=== PATIENT | male | born 1955 | race Caucasian/White ===

== ENCOUNTER 2018-04-07 05:30 | Inpatient (IN) | payer BC ==
[~2018-04-07 05:30] MED LIST: Buffered Lidocaine 1% SYRIN* 1 ML/SYRINGE INTRADERM ONE
--- OUTSIDE RECORDS SUMMARY | 2018-04-07 05:33 | XMS REPORT | Continuity of Care Document ---
:1955 External Reference #:[id number] Author Name Ilana Turcios Care Team Providers Name Role Phone Chris Adkins MD Primary Care Physician Unavailable Payers Type Date Identification Numbers Payment Provider Subscriber Policy Number: [id number] [facility] Maynor Coronel JR PayID: [id number] [address] [place] [address] Effective: 2014 Policy Number: [id number] BS Tommie Leavitts Expires: 2018 PayID: [id number] [address] [address] [place] [address] Effective: 2009 Policy Number: [id number] BS Of Y Tangela Coronel Expires: 2014 PayID: [id number] [address] [address] [place] [address] Advance Directives Description No Information Available Problems Date Description Provider Status Onset: 06/26/2017 Localized, primary osteoarthritis Jose Roberto Hutchison M.D. 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 [employer] Tobacco Use Start: Unknown End: Former Cigarette Smoker Unknown Smoking Status Reviewed: 04/02/18 Former Cigarette Smoker ETOH Use Occasionally consumes alcohol Tobacco Use Start: Unknown End: Patient is a former quit 1972, then Unknown smoker chewed tobacco quit last month Recreational Drug Use Denies Drug Use Exercise Type/Frequency Exercises regularly Allergies, Adverse Reactions, Alerts Description No Known Drug Allergies Medications Medication Date Status Form Strength Qnty SIG Indications Ordering Provider No Active Active Unknown Medications 019 Voltaren Hx Gel 1% 500unit apply 4 M17.0 Jose Roberto 018 - s grams to Foster, knee area M.D. 019 twice a day as needed Protonix Hx Tablets DR 40mg 30tabs 1 by Luis 015 - mouth F. Mauser, every day M.D. 018 Zantac 00/0 Hx Tablets 300mg 1 by Unknown 000 - mouth every day 015 Ibuprofen 200 00/0 Hx Tablets 200mg 400-600mg Unknown 000 - every 6 hours as 019 needed for pain. Immunizations Description No Information Available Vital Signs Date Vital Result Comment 04/02/2018 9:33am Height 67 inches 5'7" Weight 230.00 lb BP Systolic 138 mmHg BP Diastolic 82 mmHg Respiratory Rate 20 /min Pain Level 3 BMI (Body Mass Index) 36.0 kg/m2 01/15/2018 9:24am Height 67 inches 5'7" Weight 228.00 lb BP Systolic 132 mmHg BP Diastolic 76 mmHg Respiratory Rate 20 /min Pain Level 3 BMI (Body Mass Index) 35.7 kg/m2 08/14/2017 2:01pm Height 67 inches 5'7" Weight 228.00 lb BP Systolic 138 mmHg BP Diastolic 82 mmHg Respiratory Rate 20 /min Pain Level 3 BMI (Body Mass Index) 35.7 kg/m2 06/26/2017 1:52pm Height 67 inches 5'7" Weight 228.00 lb BP Systolic 142 mmHg BP Diastolic 86 mmHg Respiratory Rate 18 /min Body Temperature 97.4 F Pain Level 5 BMI (Body Mass Index) 35.7 kg/m2 10/05/2014 2:01pm Height 67 inches 5'7" Weight 221.00 lb Heart Rate 64 /min BP Systolic 120 mmHg LA reg BP Diastolic 70 mmHg LA reg BMI (Body Mass Index) 34.6 kg/m2 Results Test Date Facility Test Result H/L Range Note Inr/Protime 03/26/2018 [facility] Inr 0.84 N 0.77-1.[address] [place] [address] [phone] Laboratory test 03/26/2018 [facility] Partial 29.1 seconds N 26.0-36.[address] [place] [address] PTT [phone] CBC Auto Diff 03/26/2018 [facility] White Blood 5.0 10^3/uL N 3.5-10.[address] [place] [address] [phone] Red Blood Count 5.11 10^6/uL N 4.00-5.40 Hemoglobin 16.1 g/dL N 14.0-18.0 Hematocrit 46 % N 42-52 Mean Corpuscular Volume 90 fL N 80-94 Mean Corpuscular Hemoglobin 32 pg High 27-31 Mean Corpuscular HGB Conc 35 g/dL N 31-36 Red Cell Distribution Width 13 % N 10.5-15 Platelet Count 217 10^3/uL N 150-450 Mean Platelet Volume 9.4 fL N 7.4-10.4 Abs Neutrophils 3.2 10^3/uL N 1.5-7.7 Abs Lymphocytes 1.2 10^3/uL N 1.0-4.8 Abs Monocytes 0.4 10^3/uL N 0-0.8 Abs Eosinophils 0.1 10^3/uL N 0-0.6 Abs Basophils 0 10^3/uL N 0-0.2 Abs Nucleated RBC 0 10^3/uL Granulocyte % 64.1 % Lymphocyte % 24.8 % Monocyte % 8.8 % Eosinophil % 1.9 % Basophil % 0.4 % Nucleated Red Blood Cells % 0.1 Urinalysis Profile 03/26/2018 [facility] Urine Color Yellow [address] [place] [address] [phone] Urine Appearance Clear Urine Specific [place] 1.019 N 1.010-1.030 Urine pH 5.0 N 5-9 Urine Urobilinogen Negative Negative Urine Ketones Negative Negative Urine Protein Negative Negative Urine Leukocytes Negative Negative Urine Blood Negative Negative Urine Nitrite Negative Negative Urine Bilirubin Negative Negative Urine Glucose Negative Negative Comp Metabolic Panel 03/26/2018 [facility] Sodium 142 mmol/L N 135-145 [address] [place] [address] [phone] Potassium 4.6 mmol/L N 3.5-5.0 Chloride 108 mmol/L N 101-111 Co2 Carbon Dioxide 27 mmol/L N 22-32 Anion Gap 7 mmol/L N 2-11 Glucose 85 mg/dL N 70-100 Blood Urea Nitrogen 12 mg/dL N 6-24 Creatinine 0.80 mg/dL N 0.67-1.17 BUN/Creatinine Ratio 15.0 N 8-20 Calcium 9.8 mg/dL N 8.6-10.3 Total Protein 6.7 g/dL N 6.4-8.9 Albumin 4.6 g/dL N 3.2-5.2 Globulin 2.1 g/dL N 2-4 Albumin/Globulin Ratio 2.2 N 1-3 Total Bilirubin 0.40 mg/dL N 0.2-1.0 Alkaline Phosphatase 77 U/L N 34-104 Alt 22 U/L N 7-52 Ast 15 U/L N 13-39 Egfr Non- 97.6 >60 Egfr 118.1 >60 1 Type & Screen 03/26/2018 [facility] Patient Blood Type O Negative [address] [place] [address] [phone] Antibody Screen NEGATIVE Urine Culture And 03/26/2018 [facility] Urine Culture SEE RESULT [address] [place] [address] [phone] 1 Because ethnic data is not always readily available, this report includes an eGFR for both -Americans and non- Americans. The National Kidney Disease Education Program (NKDEP) does not endorse the use of the MDRD equation for patients that are not between the ages of 18 and 70, are , have extremes of body size, muscle mass, or nutritional status, or are non- or non-. According to the National Kidney Foundation, irrespective of diagnosis, the stage of the disease is based on the level of kidney function: Stage Description GFR(mL/min/1.73 m(2)) 1 Kidney damage with normal or decreased GFR 90 2 Kidney damage with mild decrease in GFR 60-89 3 Moderate decrease in GFR 30-59 4 Severe decrease in GFR 15-29 5 Kidney failure <15 (or dialysis) 2 SEE RESULT BELOW Name: MAYNOR CORONEL JR : [address]: Jose Roberto Hutchison MD Acct: [id number] Unit: [id number] AGE: 62 Location: [facility] Re03/26/18 SEX: M Status: REG REF SPEC: [id number] JESSI: 03/26/18-[address]: Jose Roberto Hutchison MD REQ: [id number] RECD: 03/26/18 STATUS: COMP _ SOURCE: URINE SPDESC: ORDERED: Urine Culture QUERIES: Urine Source: Clean Catch Procedure Result Reported Site Urine Culture Final 03/27/18- 1221 ML No Growth (<1,000 CFU/mL) * ML - Main Lab . END OF REPORT DEPARTMENT OF PATHOLOGY, [address] [place] [address] Sohail Gilmore M.D. Director [facility] # [id number] Procedures Date Code Description Status 10/06/2014 76342 ECHO Transthoracic, Real-Time 2D With Doppler And Color Completed Flow 10/05/2014 63576 EKG Tracing & Interpretation Completed 04/05/2011 27696 Xray Knee 3 Views Completed 04/05/2011 07231 Xray Knee 3 Views Completed 04/05/2011 89055 Rad Exam; Knee, Ap&L Completed 04/05/2011 99817 Rad Exam; Knee, Ap&L Completed Encounters Type Date Location Provider Dx Diagnosis Office Visit 01/15/2018 Anastasiya Dale7.11 Unilateral primary 9:30a [facility] osteoarthritis, right [facility] knee Office Visit 08/14/2017 Anastasiya Dale7.0 Bilateral primary 2:00p [facility] osteoarthritis of knee [facility] Office Visit 06/26/2017 Anastasiya Dale7.0 Bilateral primary 1:30p [facility] osteoarthritis of knee [facility] Office Visit 10/05/2014 [facility] Luis Hatch 794.31 Electrocardiogram (ECG) 2:00p Arben Su (EKG) Abnormal 786.50 Pain Chest Unspec 426.4 Right Bundle Branch Block Office Visit 04/05/2011 Anastasiya Cid 715.96 Osteoarthrosis 11:00a [facility] Unspec Genlzd Or [facility] Localized Lower Leg Plan of Treatment Future Appointment(s):04/30/2018 11:15 am - Jose Roberto Hutchison M.D. at [facility]04/07/2018 7:30 am - MADDIE Hernandez at [facility]04/07/2018 7:30 am - Jose Roberto Hutchison M.D. at [facility]José Luis04/02/2018 - Jose Roberto Hutchison M.D.M17.11 Unilateral primary osteoarthritis, right kneeFollow up:Follow up: 1 month post-op
[2018-04-07] MEDS ORDERED: Famotidine IV* 10 MG/ML 2 ML (20 mg) IV ONE (06:00)
[2018-04-07] MEDS ORDERED: Dexamethasone IV* 4 MG/ML 1 ML (4 MG) IV SLOW PU ONE (06:00)
[2018-04-07] MEDS ORDERED: Lactated Ringers 1000 ML Bag* 1,000 ML IV SCH (06:00)
[2018-04-07] MEDS ORDERED: Famotidine IV* 10 MG/ML 2 ML (20 mg) ONE (06:14)
[2018-04-07] MEDS ORDERED: ceFAZolin 2 GM PREMIX in ORs 2 GM/50 ML BAG IVPB ONE (06:14)
[2018-04-07] MEDS ORDERED: Dexamethasone IV* 4 MG/ML 1 ML (4 MG) ONE (06:14)
[2018-04-07] MEDS ORDERED: Lidocaine 1% MPF wEPI 200,000* 30 ML SDV ONE (06:49)
[2018-04-07] MEDS ORDERED: Bupivacaine 0.5%* 50 ML VIAL ONE (06:50)
[2018-04-07] MEDS ORDERED: Midazolam* 1 MG/ML 2 ML VIAL (2 MG) ONE (07:06)
[2018-04-07] MEDS ORDERED: fentaNYL* 50 MCG/ML 2 ML VIAL (100 MCG VIAL) ONE ×2 (07:06→08:45)
[2018-04-07] MEDS ORDERED: Bupivacaine 0.5% W/EPI SDV* 30 ML VIAL ONE ×2 (07:24→08:18)
[2018-04-07] MEDS ORDERED: ROPIVACAINE 5 MG/ML 30 ML BTL (0.5%) ONE (07:28)
[2018-04-07] MEDS ORDERED: Lidocaine 1%* 5 ML VIAL ONE (07:28)
[2018-04-07] MEDS ORDERED: Tranexamic Acid 1,000 MG in NS 0.9% 50 ML IV ONE (08:00)
[2018-04-07] MEDS ORDERED: Lidocaine 2% PF * 5 ML VIAL ONE (08:48)
[2018-04-07] MEDS ORDERED: Propofol* 10 MG/ML 20 ML BTL ONE ×3 (08:48→10:12)
[2018-04-07] MEDS ORDERED: Bupivacaine-MPF SPINAL* 7.5 MG/ML - 2ML AMP ONE (08:48)
[2018-04-07] MEDS ORDERED: Acetaminophen IV 1GM/100ML * 1,000 MG/100 ML VIAL IVPB ONE (09:00)
[2018-04-07] MEDS ORDERED: Morphine VIAL* 4 MG/ML VIAL (1 ml vial) IV PRN ×2 (09:00→10:44)
[2018-04-07] MEDS ORDERED: Ondansetron INJ* 2 MG/ML VIAL IV PRN ×2 (09:00→10:44)
[2018-04-07] MEDS ORDERED: oxyCODONE TAB* 5 MG TAB PO PRN (09:00)
[2018-04-07] MEDS ORDERED: fentaNYL* 50 MCG/ML 2 ML VIAL (100 MCG VIAL) IV PRN (09:00)
[2018-04-07] MEDS ORDERED: Naloxone* 0.4 MG/ML 1 ML VIAL IV PRN (09:00)
[2018-04-07] MEDS ORDERED: Ketorolac INJ* 30 MG/ML 1 ML VIAL IV PRN (09:00)
[2018-04-07] MEDS ORDERED: Propofol* 0 MG/0 ML BTL ONE (10:00)
[2018-04-07] MEDS ORDERED: Magnesium Hydroxide LIQ* 30 ML UDC PO PRN (10:38)
[2018-04-07] MEDS ORDERED: diPHENhydraMINE PO* 25 MG PO PRN (10:44)
[2018-04-07] MEDS ORDERED: Ondansetron ODT TAB* 4 MG PO PRN (10:44)
[2018-04-07] MEDS ORDERED: diPHENhydraMINE IV* 50 MG/ML 1 ml VIAL (BENADRYL) IV PRN (10:44)
[2018-04-07] MEDS ORDERED: Acetaminophen IV 1GM/100ML * 100 ML ONE (10:52)
[2018-04-07] MEDS ORDERED: Acetaminophen TAB* 325 MG PO SCH (11:00)
[2018-04-07] MEDS: D5W 1/2 NS 1000 ML BAG* 1,000 ML IV SCH ×3 (12:23→23:22)
[2018-04-07] MEDS: traMADol TAB* 50 MG PO SCH ×3 (13:32→23:27)
[2018-04-07] MEDS: oxyCODONE TAB* 5 MG TAB PO PRN ×2 (14:36→18:18)
[2018-04-07] MEDS ORDERED: Warfarin TAB(*) 10 MG PO ONE (17:00)
[2018-04-07] MEDS: Acetaminophen TAB* 325 MG PO SCH (17:33)
[2018-04-07] MEDS: ceFAZolin 1 GM ADVAN(*) 1 GM in NS 0.9% 50 ML* 50 ML IVPB SCH ×2 (17:34→23:27)
--- NOTE | 2018-04-07 20:21 | OP ---
DATE OF OPERATION: 04/07/18 - ROOM #348 DATE OF : 53 SURGEON: Jose Roberto Hutchison MD SALES REPRESENTATIVE [employer]: MADDIE Aguayo ANESTHESIA: Local/regional/spinal/sedation. PRE-OP DIAGNOSIS: Osteoarthritis, right knee. POST-OP DIAGNOSIS: Osteoarthritis, right knee. OPERATIVE PROCEDURE: Right total knee arthroplasty. INDICATIONS: Mr. Coronel is a 62-year-old male, who has had a history of troubles with both of his knees. The right, however, has been getting much worse where he has been more limited in his ability to get around and do activities. He had previously done well with anti-inflammatories, physical therapy and even Voltaren Gel. He presented to the office requesting a total knee arthroplasty. On x-ray, he has [id number] in the medial compartment with significant spurring in all three compartments as well as sclerosis. I discussed with him that a total knee arthroplasty should work well to decrease his pain and improve his function. Risks of surgery such as infection, scar formation, stiffness, DVT, pulmonary embolism, hardware failure, and continued pain were some of the risks discussed. He had been declared medically optimized and wished to proceed. ESTIMATED BLOOD LOSS: Less than 50 cc. COMPLICATIONS: None. HARDWARE: Lissett Persona #8 femur, E tibia, 12-mm polyethylene vitamin E impregnated, 35-mm patella. DESCRIPTION OF PROCEDURE: The patient had a block placed in the holding area and was brought back to the OR. Spinal anesthesia was introduced. Clemente catheter was placed. Tourniquet was placed over the proximal right thigh and was used during the case. Total tourniquet time would be 81 minutes. Right knee was prepped and then draped. Esmarch was used to exsanguinate the leg and the tourniquet was raised. Midline incision was made beginning about 5 cm above the superior pole of the patella and was carried down through the skin and subcutaneous tissues to the medial side of the tibial tubercle. Thickened irritated prepatellar bursa was encountered. Some of the bursal tissue was sharply excised. Extensor mechanism was nicely exposed and a sharp parapatellar arthrotomy was made. Quite a bit of clear yellowish joint fluid was encountered. Soft tissues were sharply elevated from the medial side of the tibia and fat pad was sharply excised. Patella measured approximately 24 mm in thickness and initially only a 5 mm cut was taken. Patella was then subluxated laterally and the knee was flexed up. Step drill was used to open up the femoral canal and intramedullary guide was placed. Unfortunately, I had requested the guide to be set to resect 2 mm and be set at 4 degrees, but most likely with the impacting it had shifted, so that it appeared to be set at 2 degrees. I already had to pins in place and trying to adjust the pins, found them to be loosened, so I stayed with the original pin holes. Distal femoral cut was taken and a nice clean cut was obtained. Femur was sized and he sat nicely for an 8. Holes were drilled and cutting block was placed. Using the superior drill hole, I did not clear the femoral cortex and the block was moved up by 2 mm. This allowed me to clear nicely. Cutting block was then used to take the anterior and posterior femoral cuts followed by the chamfer cut. Knee was flexed up and step drill was used to open the tibial canal. Intramedullary guide was placed and outrigger was assembled until it appeared it would take 2 mm from the worn medial side. Alignment guide was checked with the drop arti and cutting guide was then pinned into place. Proximal tibial cut was taken and it appeared a nice cut was obtained. With the 10, he appeared a little bit tight on the medial side and loose on the lateral side which is what I thought would happen with the 3-degree cut. Distal femur was re-cut freehand taking an additional 2 mm from the medial side until this leveled off at the end of the lateral femoral condyle. With a 12 block, he came out nicely with just a tiny bit of wobble and with flexion he seemed to be alright and that his stability was quite good. Proximal tibia was then sized and he sat nicely for an E. Proximal tibia was drilled and then punched. Trial was placed over the femur and the notch cut was finished and stud holes were drilled. He was trialed with a 10, an 11 and a 12, and the 12 gave him the best stability and full extension. With the 10 and 11, he had a little bit of wobble. Coming with all of them, he flexed nicely. Patellar tracking was perfect. New caliber had been obtained and the patellar cut was finished leaving 14 mm of patellar bone. Patella was sized and a 35 sat very nicely. Holes were drilled and trial was snapped into place. With flexion and extension, he still tracked perfectly. Trial instrumentation was removed and the knee was copiously pulse lavaged. Cement was being prepared. Tibia followed by femur and patella were all cemented into place. Cement was allowed to harden and then the knee was searched for excess cement and a few small pieces were found. He was again trialed with an 11 and then a 12 and I liked the 12 better. 12 polyethylene was then snapped into place. Knee was again copiously pulse lavaged and parapatellar arthrotomy was repaired using interrupted #1 Vicryl sutures. Tourniquet was let down and no significant bleeding was encountered. Subcutaneous tissues were reapproximated using 2-0 Vicryls. Skin was closed using valente. Sterile dressing and a Cryo/Cuff applied in the OR. The patient was then awakened and stable on transfer to the recovery room. Chrissy Beth was present for all aspects of the case from prepping to the draping, approach, implantation of the instruments, and closure. The case could not have been done without an commercial assistant. [id number]/[facility] #: [id number] KHAI
[2018-04-07] MEDS: Magnesium Hydroxide LIQ* 30 ML UDC PO SCH (21:09)
[2018-04-07] MEDS: Docusate CAP* 100 MG PO SCH (21:09)
[2018-04-08] MEDS: oxyCODONE TAB* 5 MG TAB PO PRN ×5 (00:15→21:07)
[2018-04-08] MEDS: Acetaminophen TAB* 325 MG PO SCH ×3 (02:43→17:11)
[2018-04-08] MEDS: traMADol TAB* 50 MG PO SCH ×4 (05:11→23:00)
[2018-04-08 05:21] LABS: ABS Basophils 0 10^3/ul (0-0.2); ABS Eosinophils 0 10^3/ul (0-0.6); ABS Lymphocytes 1.3 10^3/ul (1.0-4.8); ABS Neutrophils 4.7 10^3/ul (1.5-7.7); ABS Nucleated RBC 0 10^3/ul; Eosinophil % 0.7 %; Hematocrit 36 % (42-52); Hemoglobin 12.6 g/dl (14.0-18.0); Lymphocyte % 18.8 %; Mean Corpuscular HGB Conc 35 g/dl (31-36); Mean Corpuscular Hemoglobin 31 pg (27-31); Mean Corpuscular Volume 90 fL (80-94); Mean Platelet Volume 8.6 fL (7.4-10.4); Nucleated Red Blood Cells % 0; Platelet Count 157 10^3/ul (150-450); Red Blood Count 4.01 10^6/ul (4.00-5.40); Red Cell Distribution Width 13 % (10.5-15); White Blood Count 7.1 10^3/ul (3.5-10.8)
[2018-04-08 05:25] LABS: INR 0.94 (0.77-1.02)
[2018-04-08 05:38] LABS: BUN/Creatinine Ratio 17.7 (8-20); Calcium 8.4 mg/dL (8.6-10.3); EGFR Non-African American 99.1 (>60); Potassium 3.7 mmol/L (3.5-5.0)
[2018-04-08] MEDS: ceFAZolin 1 GM ADVAN(*) 1 GM in NS 0.9% 50 ML* 50 ML IVPB SCH (08:14)
[2018-04-08] MEDS: Docusate CAP* 100 MG PO SCH ×2 (08:17→21:07)
[2018-04-08] MEDS: Magnesium Hydroxide LIQ* 30 ML UDC PO SCH ×2 (08:17→21:08)
--- NOTE | 2018-04-08 11:03 | PN ---
Progress Note - Progress Note Date of Service: 04/08/18 SOAP: Subjective: []Patient was seen and examined at bedside. Right knee pain has worsened after participation with PT though remains tolerable. He feels well with no chest pain , shortness of breath, dizziness or nausea. He does not have a history of DVT or PE. Objective: []General: Well appearing, NAD RLE: Right knee dressing CDI without surrounding erythema. Thigh is soft. DF/PF intact, sensation intact to light touch distally, DP2+. Calves are supple and nontender without erythema, edema or palpable cords Assessment: []POD 1 sp RTK 04/07 Dr Hutchison Plan: []WBAT PT/OT heparin bridge to coumadin, coumadin 8 mg today Patient lives alone but has ample help from children and neighbors. Progressing well with PT, I anticipate he will be able to DC to home tomorrow Vital Signs Temp 97.8 F 04/08/18 07:54 Pulse 72 04/08/18 07:54 Resp 18 04/08/18 08:18 BP 154/85 04/08/18 07:54 Pulse Ox 97 04/08/18 08:00 Intake & Output 04/07/18 04/08/18 04/08/18 18:59 06:59 18:59 Intake Total 2260 1820 460 Output Total 1400 825 800 Balance 860 995 -340 Intake: IV Fluids 1900 990 D5W 1/2 NS 990 LR 1900 Oral 360 830 460 Output: Urine 800 Clemente 1400 825 Other: # Bowel Movements 0 Estimated Blood Loss 250 Comment Laboratory Last Values WBC 7.1 10^3/ul (3.5-10.8) 04/08/18 05:08 RBC 4.01 10^6/ul (4.00-5.40) 04/08/18 05:08 Hgb 12.6 g/dl (14.0-18.0) L 04/08/18 05:08 Hct 36 % (42-52) L 04/08/18 05:08 MCV 90 fL (80-94) 04/08/18 05:08 MCH 31 pg (27-31) 04/08/18 05:08 MCHC 35 g/dl (31-36) 04/08/18 05:08 RDW 13 % (10.5-15) 04/08/18 05:08 Plt Count 157 10^3/ul (150-450) 04/08/18 05:08 MPV 8.6 fL (7.4-10.4) 04/08/18 05:08 Neut % (Auto) 66.1 % 04/08/18 05:08 Lymph % (Auto) 18.8 % 04/08/18 05:08 Crowley % (Auto) 14.1 % 04/08/18 05:08 Eos % (Auto) 0.7 % 04/08/18 05:08 Baso % (Auto) 0.3 % 04/08/18 05:08 Absolute Neuts (auto) 4.7 10^3/ul (1.5-7.7) 04/08/18 05:08 Absolute Lymphs (auto) 1.3 10^3/ul (1.0-4.8) 04/08/18 05:08 Absolute Monos (auto) 1.0 10^3/ul (0-0.8) H 04/08/18 05:08 Absolute Eos (auto) 0 10^3/ul (0-0.6) 04/08/18 05:08 Absolute Basos (auto) 0 10^3/ul (0-0.2) 04/08/18 05:08 Absolute Nucleated RBC 0 10^3/ul 04/08/18 05:08 Nucleated RBC % 0 04/08/18 05:08 INR (Anticoag Therapy) 0.94 (0.77-1.02) 04/08/18 05:08 Sodium 135 mmol/L (135-145) 04/08/18 05:08 Potassium 3.7 mmol/L (3.5-5.0) 04/08/18 05:08 Chloride 104 mmol/L (101-111) 04/08/18 05:08 Carbon Dioxide 25 mmol/L (22-32) 04/08/18 05:08 Anion Gap 6 mmol/L (2-11) 04/08/18 05:08 BUN 14 mg/dL (6-24) 04/08/18 05:08 Creatinine 0.79 mg/dL (0.67-1.17) 04/08/18 05:08 Est GFR ( Amer) 119.9 (>60) 04/08/18 05:08 Est GFR (Non-Af Amer) 99.1 (>60) 04/08/18 05:08 BUN/Creatinine Ratio 17.7 (8-20) 04/08/18 05:08 Glucose 131 mg/dL (70-100) H 04/08/18 05:08 Calcium 8.4 mg/dL (8.6-10.3) L 04/08/18 05:08
[2018-04-08] MEDS: Heparin VIAL(*) 5000 UNITS/ML VIAL (FIVE THOUSAND) SUBCUT SCH ×2 (13:04→22:59)
[2018-04-08] MEDS: Cyclobenzaprine TAB* 10 MG PO PRN (14:24)
[2018-04-08] MEDS ORDERED: Ketorolac INJ* 30 MG/ML 1 ML VIAL ONE (14:37)
[2018-04-08] MEDS: Ketorolac INJ* 30 MG/ML 1 ML VIAL IV PUSH PRN ×2 (14:43→21:04)
[2018-04-08] MEDS ORDERED: Warfarin TAB(*) 4 MG PO ONE (17:00)
[2018-04-09] MEDS: oxyCODONE TAB* 5 MG TAB PO PRN ×5 (02:53→22:36)
[2018-04-09] MEDS: Acetaminophen TAB* 325 MG PO SCH ×3 (02:54→18:04)
[2018-04-09] MEDS: Heparin VIAL(*) 5000 UNITS/ML VIAL (FIVE THOUSAND) SUBCUT SCH ×3 (05:27→22:31)
[2018-04-09] MEDS: traMADol TAB* 50 MG PO SCH ×4 (05:28→22:27)
[2018-04-09 06:35] LABS: Hematocrit 34 % (42-52); Hemoglobin 12.1 g/dl (14.0-18.0); Mean Platelet Volume 8.8 fL (7.4-10.4); Platelet Count 138 10^3/ul (150-450)
[2018-04-09 06:42] LABS: INR 1.01 (0.77-1.02)
[2018-04-09] MEDS: Ketorolac INJ* 30 MG/ML 1 ML VIAL IV PUSH PRN (07:02)
[2018-04-09] MEDS: Docusate CAP* 100 MG PO SCH ×3 (08:42→22:30)
[2018-04-09] MEDS: Magnesium Hydroxide LIQ* 30 ML UDC PO SCH ×3 (08:42→22:32)
--- NOTE | 2018-04-09 10:48 | PN ---
Progress Note - Progress Note Date of Service: 04/09/18 SOAP: Subjective: []patient was seen and examined at bedside. He feels well without CP, SOB, dizziness or nausea. He has COPD and reports his breathing is his baseline. RLE pain is well controlled. Objective: []General: Well appearing, NAD RLE: Right knee dressing changed, incision CDI without surrounding erythema. Thigh is soft. DF/PF intact, sensation intact to light touch distally, DP2+. Calves are supple and nontender without erythema, edema or palpable cords Assessment: []POD 2 sp RTK 04/07 Dr Hutchison Plan: []WBAT PT/OT heparin bridge to coumadin, coumadin 8 mg today After discussion with patient's daughter there is concern that he may not have enough help at home. He is agreeable to go to rehab, preferably [place]. CM aware Vital Signs Temp 98.2 F 04/09/18 03:48 Pulse 67 04/09/18 07:39 Resp 18 04/09/18 09:22 BP 143/87 04/09/18 07:39 Pulse Ox 99 04/09/18 07:39 Intake & Output 04/08/18 04/09/18 04/09/18 18:59 06:59 18:59 Intake Total 2412 Output Total 1700 1650 550 Balance 712 -1650 -550 Intake: IV Fluids 762 ABX - CEFAZOLIN 162 D5W 1/2 NS 600 Oral 1650 Output: Urine 1700 1650 550 Other: # Bowel Movements 1 Estimated Stool Amount Small Laboratory Last Values WBC 7.1 10^3/ul (3.5-10.8) 04/08/18 05:08 RBC 4.01 10^6/ul (4.00-5.40) 04/08/18 05:08 Hgb 12.1 g/dl (14.0-18.0) L 04/09/18 06:13 Hct 34 % (42-52) L 04/09/18 06:13 MCV 90 fL (80-94) 04/08/18 05:08 MCH 31 pg (27-31) 04/08/18 05:08 MCHC 35 g/dl (31-36) 04/08/18 05:08 RDW 13 % (10.5-15) 04/08/18 05:08 Plt Count 138 10^3/ul (150-450) L 04/09/18 06:13 MPV 8.8 fL (7.4-10.4) 04/09/18 06:13 Neut % (Auto) 66.1 % 04/08/18 05:08 Lymph % (Auto) 18.8 % 04/08/18 05:08 [place] % (Auto) 14.1 % 04/08/18 05:08 Eos % (Auto) 0.7 % 04/08/18 05:08 Baso % (Auto) 0.3 % 04/08/18 05:08 Absolute Neuts (auto) 4.7 10^3/ul (1.5-7.7) 04/08/18 05:08 Absolute Lymphs (auto) 1.3 10^3/ul (1.0-4.8) 04/08/18 05:08 Absolute Monos (auto) 1.0 10^3/ul (0-0.8) H 04/08/18 05:08 Absolute Eos (auto) 0 10^3/ul (0-0.6) 04/08/18 05:08 Absolute Basos (auto) 0 10^3/ul (0-0.2) 04/08/18 05:08 Absolute Nucleated RBC 0 10^3/ul 04/08/18 05:08 Nucleated RBC % 0 04/08/18 05:08 INR (Anticoag Therapy) 1.01 (0.77-1.02) 04/09/18 06:13 Sodium 135 mmol/L (135-145) 04/08/18 05:08 Potassium 3.7 mmol/L (3.5-5.0) 04/08/18 05:08 Chloride 104 mmol/L (101-111) 04/08/18 05:08 Carbon Dioxide 25 mmol/L (22-32) 04/08/18 05:08 Anion Gap 6 mmol/L (2-11) 04/08/18 05:08 BUN 14 mg/dL (6-24) 04/08/18 05:08 Creatinine 0.79 mg/dL (0.67-1.17) 04/08/18 05:08 Est GFR ( Amer) 119.9 (>60) 04/08/18 05:08 Est GFR (Non-Af Amer) 99.1 (>60) 04/08/18 05:08 BUN/Creatinine Ratio 17.7 (8-20) 04/08/18 05:08 Glucose 131 mg/dL (70-100) H 04/08/18 05:08 Calcium 8.4 mg/dL (8.6-10.3) L 04/08/18 05:08
[2018-04-09] MEDS ORDERED: Warfarin TAB(*) 4 MG PO ONE (17:00)
[2018-04-10] MEDS: oxyCODONE TAB* 5 MG TAB PO PRN ×3 (02:45→12:38)
[2018-04-10] MEDS: Acetaminophen TAB* 325 MG PO SCH ×2 (02:45→10:42)
[2018-04-10] MEDS: Cyclobenzaprine TAB* 10 MG PO PRN (02:45)
[2018-04-10] MEDS: Heparin VIAL(*) 5000 UNITS/ML VIAL (FIVE THOUSAND) SUBCUT SCH (05:35)
[2018-04-10] MEDS: traMADol TAB* 50 MG PO SCH ×2 (05:35→10:41)
[2018-04-10 06:13] LABS: Hematocrit 33 % (42-52); Hemoglobin 11.8 g/dl (14.0-18.0); Mean Platelet Volume 8.8 fL (7.4-10.4); Platelet Count 151 10^3/ul (150-450)
[2018-04-10 06:25] LABS: INR 1.18 (0.77-1.02)
[2018-04-10] MEDS: Docusate CAP* 100 MG PO SCH (08:50)
[2018-04-10] MEDS: Magnesium Hydroxide LIQ* 30 ML UDC PO SCH (08:50)
--- NOTE | 2018-04-10 10:03 | PN ---
Progress Note - Progress Note Date of Service: 04/10/18 SOAP: Subjective: [Patient was seen and examined at bedside. He feels well without CP, SOB, dizziness, nausea. RLE pain is well controlled with current pain meds. Objective: []General: Well appearing, NAD RLE: Right knee dressing changed, incision CDI without surrounding erythema. Thigh is soft. DF/PF intact, sensation intact to light touch distally, DP2+. Calves are supple and nontender without erythema, edema or palpable cords Assessment: []POD 3 sp RTK 04/07 Dr Hutchison Plan: []WBAT PT/OT Heparin bridge to coumadin, coumadin 8 mg today. Will also be on aspirin 325 mg daily until INR is therapeutic DC to [place] today Vital Signs Temp 98.0 F 04/10/18 07:50 Pulse 69 04/10/18 07:50 Resp 20 04/10/18 08:00 BP 131/72 04/10/18 07:50 Pulse Ox 99 04/10/18 08:00 Intake & Output 04/09/18 04/10/18 04/10/18 18:59 06:59 18:59 Intake Total 1200 2850 320 Output Total 3300 2550 900 Balance -2100 300 -580 Intake: Oral 1200 2850 320 Output: Urine 3300 2550 900 Other: Estimated Void Medium # Voids 1 Laboratory Last Values WBC 7.1 10^3/ul (3.5-10.8) 04/08/18 05:08 RBC 4.01 10^6/ul (4.00-5.40) 04/08/18 05:08 Hgb 11.8 g/dl (14.0-18.0) L 04/10/18 05:50 Hct 33 % (42-52) L 04/10/18 05:50 MCV 90 fL (80-94) 04/08/18 05:08 MCH 31 pg (27-31) 04/08/18 05:08 MCHC 35 g/dl (31-36) 04/08/18 05:08 RDW 13 % (10.5-15) 04/08/18 05:08 Plt Count 151 10^3/ul (150-450) 04/10/18 05:50 MPV 8.8 fL (7.4-10.4) 04/10/18 05:50 Neut % (Auto) 66.1 % 04/08/18 05:08 Lymph % (Auto) 18.8 % 04/08/18 05:08 Angelina % (Auto) 14.1 % 04/08/18 05:08 Eos % (Auto) 0.7 % 04/08/18 05:08 Baso % (Auto) 0.3 % 04/08/18 05:08 Absolute Neuts (auto) 4.7 10^3/ul (1.5-7.7) 04/08/18 05:08 Absolute Lymphs (auto) 1.3 10^3/ul (1.0-4.8) 04/08/18 05:08 Absolute Monos (auto) 1.0 10^3/ul (0-0.8) H 04/08/18 05:08 Absolute Eos (auto) 0 10^3/ul (0-0.6) 04/08/18 05:08 Absolute Basos (auto) 0 10^3/ul (0-0.2) 04/08/18 05:08 Absolute Nucleated RBC 0 10^3/ul 04/08/18 05:08 Nucleated RBC % 0 04/08/18 05:08 INR (Anticoag Therapy) 1.18 (0.77-1.02) H 04/10/18 05:50 Sodium 135 mmol/L (135-145) 04/08/18 05:08 Potassium 3.7 mmol/L (3.5-5.0) 04/08/18 05:08 Chloride 104 mmol/L (101-111) 04/08/18 05:08 Carbon Dioxide 25 mmol/L (22-32) 04/08/18 05:08 Anion Gap 6 mmol/L (2-11) 04/08/18 05:08 BUN 14 mg/dL (6-24) 04/08/18 05:08 Creatinine 0.79 mg/dL (0.67-1.17) 04/08/18 05:08 Est GFR ( Amer) 119.9 (>60) 04/08/18 05:08 Est GFR (Non-Af Amer) 99.1 (>60) 04/08/18 05:08 BUN/Creatinine Ratio 17.7 (8-20) 04/08/18 05:08 Glucose 131 mg/dL (70-100) H 04/08/18 05:08 Calcium 8.4 mg/dL (8.6-10.3) L 04/08/18 05:08
--- NOTE | 2018-04-10 11:45 | DS ---
AMENDED REPORT NOW INCLUDES DESIGNATED COSIGNER DATE OF ADMISSION: 04/07/2018. DATE OF DISCHARGE: 04/10/2018. ATTENDING ORTHOPEDIC PROVIDER: Dr. Jose Roberto Hutchison * (dictated by MADDIE Aguayo). PREOPERATIVE DIAGNOSIS: Osteoarthritis of the right knee. OPERATIVE PROCEDURE: Right total knee arthroplasty. INDICATIONS AND HISTORY: Mr. Coronel is a 62-year-old male who has a history of troubles with both of his knees. His right, however, is getting much worse and has limited ability to get round and do activities of daily living. He has failed conservative management and elected to undergo a right total knee arthroplasty. HOSPITAL COURSE: The patient was admitted to [facility] on 2018. He underwent a right total knee arthroplasty without complication. He recovered briefly in the PACU and was transferred to the Short Stay Surgical Unit in stable condition. On postop day one, he is well-appearing and in no acute distress. He is neurovascularly intact distally. Dorsiflexion and plantarflexion intact. On postop day two, he is well-appearing and in no acute distress. Dressing was changed. Incision was clean, dry, and intact. Neurovascularly intact distally. Postop day three, the patient was well-appearing and in no acute distress. Right knee dressing changed. Incision clean, dry, and intact without surrounding erythema. Thigh was soft. Dorsiflexion and plantarflexion intact. Sensation intact to light touch distally. DP pulse 2+. Calf is supple and nontender without erythema, edema, or palpable cords. The patient denies chest pain, shortness of breath, dizziness, or nausea. He does not have any help at home and desires rehab facility until he is more mobile. He is accepted at [facility]. Vital signs today: Temperature 98.0, pulse 69, respiratory rate 20, blood pressure 131/72, pulse ox of 99. LABORATORY DATA: White blood cell count 9.1, hemoglobin 11.8, hematocrit 33. INR is 1.18. He is deemed medically and orthopedically stable for discharge home. DISCHARGE MEDICATIONS: 1. Docusate 100 mg p.o. b.i.d. prn. 2. Ultram 50 mg p.o. q.6 hours prn, max daily dose of 8. 3. Warfarin 2 mg 0 to 5 tabs daily, dose depends on INR, will continue Warfarin for 30 days. 4. Acetaminophen 975 mg p.o. q.8 hours prn. 5. Aspirin 325 mg p.o. daily, in addition to Warfarin, this is to be taken only until the patient has reached a therapeutic INR between 2 and 3. 6. Oxycodone 5 mg tabs 1 to 2 tabs every 4 hours as needed for pain, max daily dose of 4. DISCHARGE INSTRUCTIONS: The patient will be discharged to [facility]. He will be weightbearing as tolerated. Continue physical therapy and occupational therapy exercises as shown. Nurse to remove valente in 10 to 12 days. Nurse to do blood work for INR draws Mondays and . Dosing for Coumadin: 117 , 8 mg; 118, 119, and 120, 6 mg each day. Recheck INR on April 14 for further dosing instructions. In addition to Coumadin, please take aspirin 325 mg daily until INR is therapeutic between 2 and 3. Pain control: Ultram 50 mg every six hours as needed for pain, may take one to two tabs, max daily dose of eight. May also take Oxycodone 5 mg tablets one to two tabs every four hours as needed for pain, max daily dose of four. Wean off of Oxycodone and Ultram to Tylenol only as pain allows. Follow-up with Dr. Hutchison in four weeks. Call our office with any questions or concerns. MADDIE HORNE [id number]/[facility] #: [id number] KHAI
[2018-04-10 11:54] VITALS: BP 152/72
== END 2018-04-10 12:45 | DRG 302 ==
LOC: AA 05:30 → SSU 12:15
PROVIDERS: ADMIT Orthopaedic Surgery; ATTEND Orthopaedic Surgery
PROC: 0SRC0J9 Replacement of Right Knee Joint with Synthetic Substitute, Cemented, Open Approach (ICD-10-PCS; principal; 2018-04-07 07:30)
DX: M17.11 Unilateral primary osteoarthritis, right knee (principal); N40.0 Benign prostatic hyperplasia without lower urinary tract symptoms; F41.9 Anxiety disorder, unspecified; E78.5 Hyperlipidemia, unspecified; Z79.82 Long term (current) use of aspirin; Z82.49 Family history of ischemic heart disease and other diseases of the circulatory system; Z85.038 Personal history of other malignant neoplasm of large intestine; Z80.42 Family history of malignant neoplasm of prostate; Z72.89 Other problems related to lifestyle; Z87.891 Personal history of nicotine dependence
CPT/HCPCS: 36415; 71046; 80048; 85014; 85018; 85025; 85049; 85610; 88305; 88311; A9270-GY; C1776; G8987-GO-CI; G8988-GO-CI; G8989-GO-CI; J0690; J1100; J1644; J1885; J2001; J2250; J2270; J2704; J2795; J3010

== ENCOUNTER 2018-06-22 18:15 | Emergency (ER) | payer BC ==
--- OUTSIDE RECORDS SUMMARY | 2018-06-22 18:27 | XMS REPORT | Continuity of Care Document ---
:1955 External Reference #:[id number] Author Name Kenia Mccauley Care Team Providers Name Role Phone Chris Adkins MD Primary Care Physician Unavailable Payers Date Identification Numbers Payment Provider Subscriber Policy Number: [id number] [facility] Maynor Coronel JR PayID: [id number] [address] [place] [address] Effective: 2014 Policy Number: [id number] BS Tommie Honeycutt [place] Expires: 2018 PayID: [id number] [address] [address] [place] [address] Effective: 2009 Policy Number: [id number] BS Of Y Tangela Coronel Expires: 2014 PayID: [id number] [address] [address] [place] [address] Advance Directives Description No Information Available Problems Date Description Provider Status Onset: 06/26/2017 Localized, primary osteoarthritis Jose Roberto Hutchison M.D. 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 [employer] Tobacco Use Start: Unknown End: Former Cigarette Smoker Unknown Smoking Status Reviewed: 06/18/18 Former Cigarette Smoker ETOH Use Occasionally consumes alcohol Tobacco Use Start: Unknown End: Patient is a former quit 1972, then Unknown smoker chewed tobacco quit last month Recreational Drug Use Denies Drug Use Exercise Type/Frequency Exercises regularly Allergies, Adverse Reactions, Alerts Description No Known Drug Allergies Medications Medication Date Status Form Strength Qnty SIG Indications Ordering Provider Ibuprofen Active Tablets 600mg 90tabs take 1 tab M17.11 Jose Roberto Felder by mouth Foster, with food M.D. 3 times a day as needed pain Coumadin Hx Tablets 2mg 90tabs take 1-3 Jose Roberto 019 - tabs by Foster, mouth at 5 M.D. 019 at night as directed Tramadol HCL Hx Tablets 50mg 50tabs 1-2 Jose Roberto 019 - tablets by Foster, mouth M.D. 019 every 4- 6 hours as needed pain. max 8 per day Oxycodone HCL Hx Tablets 5mg 60tabs 1 tab Jose Roberto 019 - every 4-6 [facility], hours as M.D. 019 needed for pain mdd 4 No Active Hx Unknown Medications 019 - 019 Voltaren Hx Gel 1% 500uni apply 4 M17.0 Jose Roberto 018 - ts grams to [facility], knee area M.D. 019 twice a day as needed Protonix Hx Tablets DR 40mg 30tabs 1 by mouth Luis 015 - every day F. Mauser, M.D. 018 Zantac 0 Hx Tablets 300mg 1 by mouth Unknown 000 - every day 015 Ibuprofen 200 00/0 Hx Tablets 200mg 400-600mg Unknown 000 - every 6 hours as 019 needed for pain. Immunizations Description No Information Available Vital Signs Date Vital Result Comment 06/18/2018 2:37pm Height 67 inches 5'7" Weight 232.00 lb BP Systolic 150 mmHg BP Diastolic 101 mmHg Respiratory Rate 16 /min Body Temperature 97.1 F Pain Level 0 BMI (Body Mass Index) 36.3 kg/m2 05/14/2018 8:48am Height 67 inches 5'7" Weight 230.00 lb Heart Rate 68 /min BP Systolic 130 mmHg BP Diastolic 78 mmHg Respiratory Rate 16 /min Body Temperature 97.2 F Pain Level 0 BMI (Body Mass Index) 36.0 kg/m2 04/30/2018 11:20am Height 67 inches 5'7" Weight 230.00 lb BP Systolic 138 mmHg BP Diastolic 76 mmHg Respiratory Rate 18 /min Body Temperature 98.2 F Pain Level 0 BMI (Body Mass Index) 36.0 kg/m2 04/02/2018 9:33am Height 67 inches 5'7" Weight [...] Test Result H/L Range Note Inr/Protime 03/26/2018 [facility] Inr 0.84 N 0.77-1.[address] [place] [address] [phone] Laboratory test 03/26/2018 [facility] Partial 29.1 seconds N 26.0-36.[address] [place] [address] PTT [phone] CBC Auto Diff 03/26/2018 [facility] White Blood 5.0 10^3/uL N 3.5-10.[address] [place] [address] [phone] Red Blood Count 5.11 10^6/uL N 4.00-5.40 [...] Blood Cells % 0.1 Urinalysis Profile 03/26/2018 [facility] Urine Color Yellow [address] [place] [address] [phone] Urine Appearance Clear Urine Specific [place] 1.019 N 1.010-1.030 Urine pH 5.0 N 5-9 Urine Urobilinogen Negative Negative Urine Ketones Negative Negative Urine Protein Negative Negative Urine Leukocytes Negative Negative Urine Blood Negative Negative Urine Nitrite Negative Negative Urine Bilirubin Negative Negative Urine Glucose Negative Negative Comp Metabolic Panel 03/26/2018 [facility] Sodium 142 mmol/L N 135-145 [address] [place] [address] [phone] Potassium 4.6 mmol/L N 3.5-5.0 Chloride 108 [...] 118.1 >60 1 Type & Screen 03/26/2018 [facility] Patient Blood Type O Negative [address] [place] [address] [phone] Antibody Screen NEGATIVE Urine Culture And 03/26/2018 [facility] Urine Culture SEE RESULT [address] [place] [address] [phone] 1 Because ethnic data is not always [...] Attend Dr: Jose Roberto Hutchison MD Acct: [id number] Unit: [id number] AGE: 62 Location: [facility] Re03/26/18 SEX: M Status: REG REF SPEC: [id number] JESSI: 03/26/18-[address]: Jose Roberto Hutchison MD REQ: [id number] RECD: 03/26/18 STATUS: COMP _ SOURCE: URINE SPDESC: ORDERED: Urine Culture QUERIES: Urine Source: Clean Catch Procedure Result Reported Site Urine Culture Final 03/27/18- 1221 ML No Growth (<1,000 CFU/mL) * ML - Main Lab . END OF REPORT DEPARTMENT OF PATHOLOGY, [address] [place] [address] Sohail Gilmore M.D. Director [facility] # [id number] Procedures Date Code Description Status 04/07/2018 08070 TKR Total Knee Replacement Completed 04/07/2018 89341 TKR Total Knee Replacement Completed 10/06/2014 69308 ECHO Transthoracic, Real-Time 2D With Doppler And Color Completed Flow 10/05/2014 40415 EKG Tracing & Interpretation Completed 04/05/2011 94466 Xray Knee 3 Views Completed 04/05/2011 15869 Xray Knee 3 Views Completed 04/05/2011 71354 Rad Exam; Knee, Ap&L Completed 04/05/2011 53157 Rad Exam; Knee, Ap&L Completed Encounters Type Date Location Provider Dx Diagnosis Office Visit 01/15/2018 Anastasiya Dale7.11 Unilateral primary 9:30a [facility] osteoarthritis, right [facility] knee Office Visit 08/14/2017 Anastasiya Carrion.0 Bilateral primary 2:00p [facility] osteoarthritis of knee [facility] Office Visit 06/26/2017 Anastasiya Carrion.0 Bilateral primary 1:30p [facility] osteoarthritis of knee [facility] Office Visit 10/05/2014 [facility] Luis Hatch 794.31 Electrocardiogram (ECG) 2:00p Arben Su (EKG) Abnormal 786.50 Pain Chest Unspec 426.4 Right Bundle Branch Block Office Visit 04/05/2011 Anastasiya Cid 715.96 Osteoarthrosis 11:00a [facility] Unspec Genlzd Or [facility] Localized Lower Leg Plan of Treatment Future Appointment(s):01/07/2019 8:15 am - Jose Roberto Hutchison M.D. at [facility]06/18/2018 - Josefa Bar, PAM17.11 Unilateral primary osteoarthritis, right kneeFollow up:Follow up: December for evaluation and possible discuss L knee surgery. - Follow up sooner for R knee if pain, swelling.
[2018-06-22 18:36] VITALS: BP 143/76
[2018-06-22] MEDS ORDERED: Albuterol 2.5 MG/3 ML NEB.SOL* (0.083%) INH ONE (18:49)
--- NOTE | 2018-06-22 18:49 | UC ---
General HPI - HPI Summary HPI Summary: sore throat, headache and bodyaches x 2 days. today cough, congestion and wheezing. no asthma or copd. - History of Current Complaint Chief Complaint: UCRespiratory Stated Complaint: COUGH/CONGESTION/HEADACHE/ACHES Time Seen by Provider: 06/22/18 18:43 Hx Obtained From: Patient Onset/Duration: Gradual Onset Timing: Constant Pain Intensity: 2 Associated Signs & Symptoms: Negative: Chest Pain - Allergy/Home Medications Allergies/Adverse Reactions: Allergies Allergy/AdvReac Type Severity Reaction Status Date / Time No Known Allergies Allergy Verified 06/22/18 18:32 PMH/Surg Hx/FS Hx/Imm Hx Cardiovascular History: Hypertension - borderline - Surgical History Surgical History: Yes Surgery Procedure, Year, and Place: nose surgery. right knee - Family History Known Family History: Positive: Other - denies any h/o of cardiac disease - Social History Alcohol Use: Occasionally Substance Use Type: None Smoking Status (MU): Former Smoker Type: Cigarettes, Smokeless Tobacco Have You Smoked in the Last Year: No When Did the Patient Quit Smoking/Using Tobacco: 1971 - Immunization History Most Recent Influenza Vaccination: DEC 2015 Most Recent Pneumonia Vaccination: HAS NOT HAD Review of Systems All Other Systems Reviewed And Are Negative: Yes ENT: Positive: Sore Throat, Sinus Congestion Respiratory: Positive: Shortness Of Breath, Cough Musculoskeletal: Positive: Myalgia Neurological: Positive: Headache Physical Exam Triage Information Reviewed: Yes Appearance: Well-Appearing Vital Signs: Initial Vital Signs Temp 98.8 F 06/22/18 18:32 Pulse 103 06/22/18 18:32 Resp 16 06/22/18 18:32 BP 143/76 06/22/18 18:32 Pulse Ox 97 06/22/18 18:32 Vital Signs Reviewed: Yes Eyes: Positive: Conjunctiva Clear ENT: Positive: Pharyngeal erythema, Nasal congestion, TMs normal, Uvula midline. Negative: Nasal drainage, Trismus, Muffled voice, Hoarse voice, Sinus tenderness Neck: Positive: Supple, Nontender, No Lymphadenopathy Respiratory: Positive: No respiratory distress, Decreased breath sounds, Wheezing - RUL, Other: - Cough is congested and bronchospastic. Cardiovascular: Positive: RRR, No Murmur Abdomen Description: Positive: Nontender, No Organomegaly, Soft Bowel Sounds: Positive: Present Musculoskeletal: Positive: ROM Intact Neurological: Positive: Alert Psychological: Positive: Age Appropriate Behavior Skin Exam: Normal Diagnostics - Radiology No standard instances Radiology Interpretation Completed By: ED Physician - INFILTRATE ON R(REVIEWED WITH DR GUEVARA). Re-Evaluation - Re-Evaluation First Eval Re-Evaluation Time: 19:45 Change: Improved - IMPROVED AERATION AND WHEEZING HAS RESOLVED. PT NOTES FEELING BETTER AFTER THE TX Course/Dx - Course Course Of Treatment: DIAGNOSTICS: RAPID STREP AND FLU ARE NEGATIVE. - Diagnoses Provider Diagnosis: Pneumonia Discharge - Sign-Out/Discharge Documenting (check all that apply): Patient Departure All imaging exams completed and their final reports reviewed: No - Discharge Plan Condition: Stable Disposition: HOME Prescriptions: DOXYcycline CAP(*) [DOXYcycline 100MG CAP(*)] 100 mg PO BID 10 Days #20 cap Patient Education Materials: Pneumonia (ED) Referrals: Chris Adkins MD [Primary Care Provider] - 6 Days Additional Instructions: USE THE ALBUTEROL INHALER 2 PUFFS EVERY 6 HOURS - Billing Disposition and Condition Condition: STABLE Disposition: Home
[2018-06-22 19:11] LABS: Influenza A Molecular NEGATIVE (Negative); Influenza B Molecular NEGATIVE (Negative)
[2018-06-22] MEDS ORDERED: Albuterol HFA INHALER* 8 gm MDI INH ONE (19:46)
[2018-06-22] MEDS ORDERED: DOXYcycline CAP(*) 100 MG PO ONE (19:47)
== END 2018-06-22 19:56 | disposition home or self-care (01) ==
LOC: UCCORT 18:15
DX: J18.9 Pneumonia, unspecified organism (principal); R03.0 Elevated blood-pressure reading, without diagnosis of hypertension; R51 Headache; M79.10 Myalgia, unspecified site; Z87.891 Personal history of nicotine dependence
CPT/HCPCS: 71046; 87651; 99213; A9270-GY; G0463

== ENCOUNTER 2019-01-07 18:35 | Emergency (ER) | payer BC ==
--- OUTSIDE RECORDS SUMMARY | 2019-01-07 18:43 | XMS REPORT | Continuity of Care Document ---
:1955 External Reference #:[id number] Author Name Yunier Bynum Address [address] [place] [address] Care Team Providers Name Role Phone [facility] - Care Team Information [facility] [phone] Gastroenterology Chris Adkins MD - Family Care Team Information [facility] Medicine Gurvinder Escobedo - Urology Care Team Information [facility] [phone] Problems Active Problems Provider Date Hyperlipidemia Corby Penn M.D. Onset: 05/15/2007 Benign neoplasm of colon Corby Penn M.D. Onset: 05/15/2007 Hard prostate Corby Penn M.D. Onset: 05/15/2007 Acute upper respiratory infection Chris Adkins M.D. Onset: 03/12/2011 History and physical examination, Chris Adkins M.D. 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 Doxycycline Hyclate take 2 tablets 2tabs Chris Adkins, 08/26/2018 - together Arben 08/29/2018 100mg Tablets Immunizationanton CPT Code Status Date Vaccine Lot # [id number] Given 12/23/2018 Influenza Virus Vaccine, Recombinant Dna, [id number] [place] [address] Given 03/05/2018 Tetanus And Diptheria Adult Preservative Free [id number] >7Yrs [address]40[address] Given 03/05/2018 Influenza vac quadrivalent preservative free 6 [id number] months and up [address] Given 06/11/2005 Tdap Tetanus, W Pertussis [id number] Vital Signs Date Vital Result Comment 12/23/2018 10:22am BP Systolic 130 mmHg BP Diastolic 84 mmHg Heart Rate 88 /min Body Temperature 98.3 F Respiratory Rate 16 /min Height 67 inches 5'7" Weight 239.00 lb BMI (Body Mass Index) 37.4 kg/m2 05/21/2018 9:45am BP Systolic 130 mmHg BP Diastolic 74 mmHg Heart Rate 76 /min Body Temperature 98.2 F Respiratory Rate 17 /min Height 67 inches 5'7" Weight 228.00 lb BMI (Body Mass Index) 35.7 kg/m2 Results Test Date Facility Test Result H/L Range Note Laboratory test 12/23/2018 [facility](a) Free T4 <pending> 0.75- 1.54 finding TSH <pending> 0.5-5.0 Laboratory test 12/23/2018 [facility] C-Reactive <pending> finding [address] [facility] Protein, [place] [address] (607)- - Laboratory test 12/23/2018 [facility] Brain Natural 11.2 pg/mL < 100 finding (607)- - Peptide Ua - Non Micro 12/23/2018 [facility] Appearance Cloudy (a) (607)- - Color Yellow Glucose, Urine (Fma/CMC/CTX) Negative Bilirubin Negative Ketones Negative SP Grav 1.025 Blood Negative PH 5.0 Protein Negative Urobil 1.0 Nitrite Negative Leukocytes (Fma/CMC/Centrex) Negative Procedures Date Code Description Status 03/25/2017 [id number] Colonoscopy Completed Medical Devices Description No Information Available Encounters Description No Information Available Assessments Date Code Description Provider 12/23/2018 R60.0 Localized edema Yunier Bynum 12/23/2018 Z23 Encounter for immunization Yunier Bynum Plan of Treatment 12/23/2018 - Maranda Bynum-CR60.0 Localized edemaFollow up:Followup:. ( Follow up)Z23 Encounter for immunizationFollow up:Followup:. (Follow up)AllNew Medication:No Active Medications -Comments:Medication Management Patient Understands medications he's taking? Yes No no rx meds Are there Barriers to Adherence? Yes No na Has the patient been asked about herbal supplements and therapies, and OTC meds? Yes No Care Plan1. Patient has been queried about patient's goals/preferences and functional/ lifestyle goals at relevant visits. If relevant, describe: na2. Treatment goals as explained to the patient: abovefurther eval of sx 3. Are there barriers to meeting treatment goals? Yes No If Yes, please describe:4. Self-Management goals as described to the patient: Yes No will check labs and f/u pending test results Functional Status Description No Information Available Mental Status Description No Information Available Referrals Description No Information Available
[2019-01-07 19:04] VITALS: BP 123/67
--- NOTE | 2019-01-07 19:38 | UC ---
Respiratory Complaint HPI - HPI Summary HPI Summary: 63 yo with 3 days of cough with purulent sputum, sinus drainage, no fever. No shortness of breath. Remote smoking hx. - History of Current Complaint Chief Complaint: UCRespiratory Stated Complaint: CHEST CONGESTION, COUGH Time Seen by Provider: 01/07/19 19:30 Hx Obtained From: Patient Onset/Duration: Gradual Onset, Lasting Days - 3 Timing: Constant Severity Initially: Mild Severity Currently: Moderate Pain Intensity: 0 Character: Cough: Productive Aggravating Factors: Exertion, Recumbent Position Alleviating Factors: Upright Position Associated Signs And Symptoms: Positive: Wheezing, Nasal Congestion. Negative: Fever, Hemoptysis, Edema - Risk Factors Pulmonary Embolism Risk Factors: Negative Pseudomonas Risk Factors: Negative Tuberculosis Risk Factors: Negative - Allergies/Home Medications Allergies/Adverse Reactions: Allergies Allergy/AdvReac Type Severity Reaction Status Date / Time No Known Allergies Allergy Verified 01/07/19 19:04 Home Medications: Home Medications guaiFENesin ER TAB [Mucinex*] 600 mg PO BID 01/07/19 [History Confirmed 01/07/19 ] PMH/Surg Hx/FS Hx/Imm Hx Previously Healthy: Yes - overweight, recent well check with normal labs - Surgical History Surgical History: Yes Surgery Procedure, Year, and Place: nose surgery. right knee - Family History Known Family History: Positive: Diabetes, Other - mother living and well, age 91 - Social History Alcohol Use: Occasionally Substance Use Type: None Smoking Status (MU): Former Smoker Type: Cigarettes, Smokeless Tobacco Have You Smoked in the Last Year: No When Did the Patient Quit Smoking/Using Tobacco: 1971 - Immunization History Most Recent Influenza Vaccination: DEC 2015 Most Recent Pneumonia Vaccination: HAS NOT HAD Review of Systems All Other Systems Reviewed And Are Negative: Yes Constitutional: Positive: Fatigue Skin: Positive: Negative ENT: Positive: Nasal Discharge, Sinus Congestion. Negative: Sore Throat Respiratory: Positive: Cough. Negative: Shortness Of Breath Cardiovascular: Negative: Palpitations, Chest Pain Gastrointestinal: Positive: Negative Genitourinary: Positive: Negative Motor: Positive: Negative Neurovascular: Positive: Negative Musculoskeletal: Positive: Negative Neurological: Positive: Negative Is Patient Immunocompromised?: No Physical Exam Triage Information Reviewed: Yes Appearance: Ill-Appearing - congested, looks mildly unwell. Vital Signs: Initial Vital Signs Temp 98.3 F 01/07/19 19:00 Pulse 93 01/07/19 19:00 Resp 24 01/07/19 19:00 BP 123/67 01/07/19 19:00 Pulse Ox 97 01/07/19 19:00 Eyes: Positive: Conjunctiva Clear ENT: Positive: Pharyngeal erythema, TMs normal Neck: Positive: Supple, Nontender, No Lymphadenopathy Respiratory: Positive: No respiratory distress, Decreased breath sounds, Wheezing - with expiration. Cardiovascular: Positive: RRR, No Murmur Musculoskeletal Exam: Normal Neurological Exam: Normal Psychological Exam: Normal Skin Exam: Normal Respiratory Course/Dx - Course Course Of Treatment: zpack for treatment of bronchitis/cough suppressant. - Differential Dx/Diagnosis Differential Diagnosis/HQI/PQRI: Bronchitis, Laryngitis, Lower Resp Infection Provider Diagnosis: Bronchitis Discharge ED - Sign-Out/Discharge Documenting (check all that apply): Patient Departure All imaging exams completed and their final reports reviewed: No Studies - Discharge Plan Condition: Stable Disposition: HOME Prescriptions: Azithromyxin INDU (NF) [Z-Indu (Zithromax) 250 mg tabs #6] 2 tab PO .TODAY, THEN 1 DAILY #6 tab Benzonatate CAP* [Tessalon 100 MG CAP*] 100 mg PO TID PRN #30 cap PRN Reason: Cough Referrals: Chris Adkins MD [Primary Care Provider] - Additional Instructions: Take full course of antibiotic given. Ensure high intake of fluids and increase rest. Use tessalon perles as a cough suppressant. Follow up if you are not improving in 3 to 4 days. - Billing Disposition and Condition Condition: STABLE Disposition: Home
== END 2019-01-07 19:49 | disposition home or self-care (01) ==
LOC: UCCORT 18:35
DX: J40 Bronchitis, not specified as acute or chronic (principal); Z87.891 Personal history of nicotine dependence
CPT/HCPCS: 99212; G0463